=== PATIENT | female | born 2000 | race Caucasian/White ===

== ENCOUNTER 2021-02-03 08:08 | Inpatient (IN) ==
[2021-02-03] MEDS ORDERED: OXYTOCIN 30 UNITS/500 ML BAG IV PRN ×2 (08:50)
[2021-02-03 09:10] LABS: Hematocrit (blood only) 33.7 % (37-47); Hemoglobin 11.1 g/dL (12.0-16.0); Mean Corpuscular Hemoglobin 28.3 pg (25-34); Mean Corpuscular Hgb Conc 32.9 g/dL (32-36); Mean Platelet Volume 10.2 fL (7.4-10.4); Platelet Count 228 K/uL (130-400); RDW Coefficient of Variation 15.7 % (11.5-14.5); RDW Standard Deviation 49.2 fL (36.4-46.3); Red Blood Count 3.92 M/uL (4.2-5.4); White Blood Count 15.67 K/uL (4.8-10.8)
[2021-02-03] MEDS ORDERED: PENICILLIN G POTASSIUM 6 MU in DEXTROSE 5% 250 ML IV ONE (09:15)
[2021-02-03] MEDS: LACTATED RINGER'S 1,000 ML IV PRN ×2 (09:43→17:56)
--- NOTE | 2021-02-03 09:57 | History & Physical Report ---
Date of Service February 03, 2021 Assessment & Plan (1) : Plan: 20 y/o G1 at 41 2/7 wga presenting for late term IOL VSS Fetus cat 1 Labor - s/p busch bulb, will start pit GBS+, pcn started epidural PRN Admission and Anticipated Discharge Date Admission Date: February 03, 2021 History of Present Illness Chief Complaint: Late term IOL Primary Care Provider: NO PCP 20 y/o G1 at 41 2/7 wga w/ ORTEGA 01/25 by LMP 04/20 c/w [address] [place] [address] who presents for late term IOL. +FM; denies ctx, LOF, VB. Busch bulb placed last evening and fell out around 11pm last evening PNI: Asthma GBS+ Unable to view heart on anatomy, echo wnl Past DIET AID Hx: G1 Menarche 11, cycles q28-30d 03/2019 neg cytology Denies hx STIs Allergies Allergy/AdvReac Type Severity Reaction Status Date / Time No Known Allergies Allergy Verified 02/02/21 13:32 Home Medications Medication Instructions Recorded Confirmed Type prenat.vits,mariano,vjk-yafq-mxrak 1 tab PO DAILY 06/25/20 02/03/21 History albuterol sulfate 90 mcg/actuation 1 inh INHALATION QID PRN 02/03/21 02/03/21 History aerosol inhaler (Ventolin HFA) Patient History Medical History Asthma Varicella vaccination Surgical History S/P ankle fusion (~02/10/11) S/P tonsillectomy S/P wisdom tooth extraction Family History Grandfather (Maternal) Diabetes Hypertension Grandmother (Maternal) No problems noted. Grandmother (Paternal) Diabetes Mother Hypertension Asthma Uncle Liver cancer Denies family history of Ovarian cancer Breast cancer Colorectal cancer Social History Smoking Status: Former smoker Cigarettes Per Day: 01/2020; Second Hand Exposure: Yes (S.O. smokes); Do You Dip or Chew Tobacco: No; Hx Alcohol Use: No Hx Substance Use: No Preferred Language: Serbian Communication Ability: Effective Group Rooms Coordinator Required: No marital status: Single marital status details: Fonivia Fletcher (24) [phone] Current Living Situation: Significant Other Current Living Situation Comment: Lives with Henry and daisy current occupational status: unemployed Other Information That Helps Us Care for You: No Feels Safe at Home: Yes Safety Concerns: Feels Safe At This Time Assistive Devices: None Physical Exam Constitutional: WD/WN, vitals as above Respiratory: normal respiratory effort; no respiratory distress and no labored breathing Psychiatric: A+Ox3, euthymic affect Genitourinary: OB Exam Abdomen: + vertex and + estimated weight (8) Manual OB Exam: + cervical dilation 3 cm, + cervical effacement 50% and + station -2 OB Exam Monitor Tracing: + external FHT monitor used, + external uterine monitor used (irreg ctx) and + category I (140/mod/+accel/-decel) Results & Data ([facility]) Vital Signs (Past 12 Hours) Vital Signs Temp Pulse Resp BP 02/03/21 08:44 97.9 F 93 H 20 137/74 02/03/21 08:17 93 H 137/74 Laboratory Results OB Labs: Blood Type O Positive 06/26/20 Antibody Screen NEGATIVE 06/26/20 Hemoglobin 10.7 g/dL (12.0-16.0) L 11/13/20 Hematocrit 32.9 % (37-47) L 11/13/20 Mean Corpuscular Volume 84.2 fL (80-100) 06/26/20 Platelet Count 237 K/uL (130-400) 06/26/20 Rubella IgG Antibody Immune (Immune) 06/26/20 Rapid Plasma Reagin Nonreactive (Nonreactive) 06/26/20 Hepatitis B Surface Antigen Neg (Neg) 06/26/20 HIV (1&2) Ab and P24 Ag, 4th Gener Neg (Neg) 06/26/20 Glucose 1 Hour 50 gm Load 102 mg/dl (70-130) 11/13/20 Maternal Serum Alpha Fetoprotein 48.1 ng/mL 08/21/20 OB Optional Labs: Chlamydia trachomatis RNA NOT DETECTED (NOT DETECTED) 06/26/20 Neisseria gonorrhoeae RNA NOT DETECTED (NOT DETECTED) 06/26/20 Thyroid Stimulating Hormone (TSH) 0.724 uIu/ml (0.300-4.500) 08/21/20 Alpha Fetoprotein Triple Screen SEE NOTE low risk cfdna AFP neg Diagnostic Findings Anterior plac Coding Level of Care Code None Diagnoses Z34.90
--- NOTE | 2021-02-03 13:15 | Labor Progress Brief Note ---
Date of Service February 03, 2021 Subjective Feeling crampy Assessment & Plan (1) : Plan: 20 y/o G1 at 41 2/7 wga presenting for late term IOL VSS Fetus cat 1 Labor - pit at 12, no real change noted. Will plan arom with next check after 2nd dose pcn to see if will help GBS+, pcn started epidural PRN Admission and Anticipated Discharge Date Admission Date: February 03, 2021 Physical Exam Genitourinary: Manual OB Exam: + cervical dilation 3 cm, + cervical effacement 50% and + station -2 OB Exam Monitor Tracing: + external FHT monitor used, + external uterine monitor used (q3-4) and + category I (130/mod/+accel/-decel) Results & Data ([facility]) Vital Signs (Past 12 Hours) Vital Signs Temp Pulse Resp BP 02/03/21 12:52 81 20 131/67 02/03/21 11:52 98.4 F 85 20 127/67 02/03/21 11:32 78 122/71 02/03/21 11:16 86 20 137/85 02/03/21 10:45 88 128/64 02/03/21 08:44 97.9 F 93 H 20 137/74 02/03/21 08:17 93 H 137/74 Coding Level of Care Code None Diagnoses Z34.90
[2021-02-03] MEDS: PENICILLIN G POTASSIUM 3 MU in DEXTROSE 5% 100 ML IV PRN ×3 (14:19→21:44)
[2021-02-03] MEDS ORDERED: fentaNYL citrate 100 MCG/2 ML VIAL ONE (14:46)
[2021-02-03] MEDS ORDERED: SODIUM CHLORIDE 0.9% INJ 10 ML VIAL ONE (14:46)
[2021-02-03] MEDS ORDERED: ePHEDrine sulfate 50 MG/ML AMP ONE (14:46)
[2021-02-03] MEDS ORDERED: BUPIVACAINE 0.25% 30 ML VIAL ONE (14:46)
[2021-02-03] MEDS ORDERED: fentaNYL 2MCG/ML ROPIVACAINE 1.25MG/ML 100 ML BAG EPI ONE (14:47)
--- NOTE | 2021-02-03 15:08 | Anesthesiology Consultation ---
Date of Service February 03, 2021 Assessment & Plan (1) Encounter for pre-operative examination: Chart Review Chart Review: Acceptable Risk for Labor Epidural Consults Requested none ASA ASA2 Proposed Anesthesia Anesthesia Type: Labor Epidural Risk / Benefits Reviewed With: PT / POA / Parent / Guardian, Accepts Plan and Informed Consent Obtained History Height/Weight Height: 5 ft 2 in Weight: 98.792 kg Allergies Allergy/AdvReac Type Severity Reaction Status Date / Time No Known Allergies Allergy Verified 02/02/21 13:32 Medications Home Medications Medication Instructions Recorded Confirmed Last Taken prenat.vits,mariano,bzi-dazt-gjlfv 1 tab PO DAILY 06/25/20 02/03/21 02/02/21 08:00 albuterol sulfate 90 mcg/actuation 1 inh INHALATION QID PRN 02/03/21 02/03/21 Unknown aerosol inhaler (Ventolin HFA) Active Medications Generic Name Dose Route Start Last Admin Trade Name Freq PRN Reason Stop Dose Admin Penicillin G Potassium 3 mu/ 106 mls @ 100 mls/hr 02/03/21 08:50 02/03/21 14:19 Dextrose IV 02/13/21 08:49 100 mls/hr Q4H PRN Administration Give until delivery Oxytocin 30 units in 500 mls @ 14 mls/hr 02/03/21 08:50 02/03/21 13:15 Pitocin IV 02/05/21 08:49 0.84 units/hr .Q24H PRN 14 mls/hr Labor Induction/Augmentation Titration Protocol 0.84 UNITS/HR Lactated Ringer's 1,000 mls @ 125 mls/hr 02/03/21 08:50 02/03/21 14:42 Lr IV 02/05/21 08:49 999 mls/hr .Q8H PRN Infusion L&D Protocol Protocol Past Medical History Medical History Asthma Varicella vaccination Exercise / Class Metabolic Activity II 4-5 Yardwork/Stairs/Walk up hill Past Family History Family History Grandfather (Maternal) Diabetes Hypertension Grandmother (Maternal) No problems noted. Grandmother (Paternal) Diabetes Mother Hypertension Asthma Uncle Liver cancer Denies family history of Ovarian cancer Breast cancer Colorectal cancer Past Surgical History Surgical History S/P ankle fusion (~02/10/11) S/P tonsillectomy S/P wisdom tooth extraction Past Anesthesia History No Hx of Anesthesia Complications and No Family Hx of Anesthesia Complications History of PONV No Hx of PONV and No Hx of Motion Sickness Social History Smoking Status: Former smoker tobacco type: cigarettes Smoking cigarettes per day: 01/2020 Do You Dip or Chew Tobacco: No Hx Alcohol Use: No Hx Substance Use: No substance use type: does not use Physical Exam Vital Signs Last Vital Signs Temp 97.9 F 02/03/21 15:03 Pulse 71 02/03/21 15:03 Resp 20 02/03/21 15:03 BP 118/65 02/03/21 15:03 ENMT Mouth: no dentition abnormality Thyromental Distance: > or= 3.5 Finger Breadths Mallampati Class: II Neck normal visual inspection Respiratory normal respiratory effort Auscultation: lungs clear to auscultation bilaterally Cardiovascular Rate/Rhythm: regular rate and regular rhythm Testing Laboratory Results 02/03/21 09:01
[2021-02-03] MEDS ORDERED: ePHEDrine sulfate 50 MG/ML AMP IV PRN (15:26)
[2021-02-03] MEDS ORDERED: fentaNYL 2MCG/ML ROPIVACAINE 1.25MG/ML 100 ML BAG EPI PRN (15:26)
[2021-02-03] MEDS ORDERED: ONDANSETRON INJ 2 MG/ML 2 ML VIAL IV PRN (15:26)
[2021-02-03] MEDS ORDERED: NALOXONE HCL 0.4 MG/1 ML VIAL/CARP IV PRN (15:26)
[2021-02-03] MEDS ORDERED: diphenhydrAMINE 50 MG/ML VIAL IV PRN (15:26)
[2021-02-03] MEDS ORDERED: NALBUPHINE HCL INJ 10 MG/ML AMP IV PRN (15:26)
[2021-02-03] MEDS ORDERED: NALOXONE HCL 1 MG in SODIUM CHLORIDE 0.9% 1000ML 1,000 ML IV PRN (15:26)
--- NOTE | 2021-02-03 15:55 | Labor Progress Brief Note ---
Date of Service February 03, 2021 Subjective s/p epidural, more comfortable Assessment & Plan (1) : Plan: 20 y/o G1 at 41 2/7 wga presenting for late term IOL VSS Fetus cat 1 Labor - s/p AROM, continue augmentation GBS+, pcn epidural in place Admission and Anticipated Discharge Date Admission Date: February 03, 2021 Physical Exam Genitourinary: Manual OB Exam: + cervical dilation 3 cm, + cervical effacement 50%, + station -1 and + amniotic fluid (AROM clear) OB Exam Monitor Tracing: + external FHT monitor used, + external uterine monitor used (q3-4) and + category I (130/mod/+accel/-decel) Results & Data ([facility]) Vital Signs (Past 12 Hours) Vital Signs Temp Pulse Resp BP Pulse Ox 02/03/21 15:51 79 133/84 02/03/21 15:50 90 99 02/03/21 15:45 81 98 02/03/21 15:40 80 99 02/03/21 15:35 82 131/77 99 02/03/21 15:33 81 18 131/80 91 02/03/21 15:31 80 125/57 L 02/03/21 15:30 89 100 02/03/21 15:29 83 128/66 02/03/21 15:27 77 119/68 02/03/21 15:25 87 126/73 99 02/03/21 15:23 77 129/76 02/03/21 15:21 78 123/76 02/03/21 15:20 83 121/67 100 02/03/21 15:15 81 99 02/03/21 15:10 86 100 02/03/21 15:03 97.9 F 71 20 118/65 02/03/21 13:53 82 122/69 02/03/21 12:52 81 20 131/67 02/03/21 11:52 98.4 F 85 20 127/67 02/03/21 11:32 78 122/71 02/03/21 11:16 86 20 137/85 02/03/21 10:45 88 128/64 02/03/21 08:44 97.9 F 93 H 20 137/74 02/03/21 08:17 93 H 137/74 Coding Level of Care Code None Diagnoses Z34.90
--- NOTE | 2021-02-03 19:22 | Labor Progress Brief Note ---
Date of Service February 03, 2021 Subjective Comfortable w/ epidural Assessment & Plan (1) : Plan: 20 y/o G1 at 41 2/7 wga presenting for late term IOL VSS Fetus cat 1 Labor - continue augmentation GBS+, pcn epidural in place Admission and Anticipated Discharge Date Admission Date: February 03, 2021 Physical Exam Genitourinary: Manual OB Exam: + cervical dilation 4 cm, + cervical effacement 50% and + station -2 OB Exam Monitor Tracing: + external FHT monitor used, + external uterine monitor used (q3-4) and + category I (130/mod/+accel/-decel) Results & Data ([facility]) Vital Signs (Past 12 Hours) Vital Signs Temp Pulse Resp BP Pulse Ox 02/03/21 19:15 79 99 02/03/21 19:10 92 H 99 02/03/21 19:05 99 H 138/84 99 02/03/21 19:00 98.4 F 101 H 18 99 02/03/21 18:55 80 99 02/03/21 18:52 85 133/88 02/03/21 18:50 82 98 02/03/21 18:45 92 H 99 02/03/21 18:40 90 97 02/03/21 18:37 88 147/75 H 02/03/21 18:35 83 100 02/03/21 18:30 91 H 99 02/03/21 18:25 92 H 100 02/03/21 18:21 91 H 131/76 02/03/21 18:20 87 99 02/03/21 18:15 93 H 99 02/03/21 18:10 84 98 02/03/21 18:07 95 H 128/86 02/03/21 18:05 83 98 02/03/21 18:00 97.9 F 89 20 99 02/03/21 17:55 86 98 02/03/21 17:51 83 136/63 02/03/21 17:50 90 99 02/03/21 17:45 104 H 95 02/03/21 17:40 77 99 02/03/21 17:35 74 107/53 L 100 02/03/21 17:33 78 92 02/03/21 17:30 78 98 02/03/21 17:25 81 98 02/03/21 17:21 73 114/55 L 02/03/21 17:20 71 90 08/17/21 17:15 78 98 02/03/21 17:10 80 95 02/03/21 17:07 75 107/55 L 02/03/21 17:05 77 100 02/03/21 17:00 77 98 02/03/21 16:55 75 99 02/03/21 16:52 78 102/53 L 94 02/03/21 16:50 81 98 02/03/21 16:45 75 97 02/03/21 16:40 74 99 02/03/21 16:37 78 117/65 02/03/21 16:35 78 98 02/03/21 16:30 74 99 02/03/21 16:25 80 100 02/03/21 16:20 83 137/83 99 02/03/21 16:15 88 99 02/03/21 16:10 83 99 02/03/21 16:07 82 133/84 02/03/21 16:05 79 99 02/03/21 16:00 81 100 02/03/21 15:55 97.9 F 91 H 20 100 02/03/21 15:51 79 133/84 02/03/21 15:50 90 99 02/03/21 15:45 81 98 02/03/21 15:40 80 99 02/03/21 15:35 82 131/77 99 02/03/21 15:33 81 18 131/80 91 02/03/21 15:31 80 125/57 L 02/03/21 15:30 89 100 02/03/21 15:29 83 128/66 02/03/21 15:27 77 119/68 02/03/21 15:25 87 126/73 99 02/03/21 15:23 77 129/76 02/03/21 15:21 78 123/76 02/03/21 15:20 83 121/67 100 02/03/21 15:15 81 99 02/03/21 15:10 86 100 02/03/21 15:03 97.9 F 71 20 118/65 02/03/21 13:53 82 122/69 02/03/21 12:52 81 20 131/67 02/03/21 11:52 98.4 F 85 20 127/67 02/03/21 11:32 78 122/71 08/17/21 11:16 86 20 137/85 08/17/21 10:45 88 128/64 02/03/21 08:44 97.9 F 93 H 20 137/74 02/03/21 08:17 93 H 137/74 Coding Level of Care Code None Diagnoses Z34.90
--- NOTE | 2021-02-03 22:02 | Labor Progress Brief Note ---
Date of Service February 03, 2021 Assessment & Plan (1) : Plan: 20 y/o G1 at 41 2/7 wga presenting for late term IOL VSS Fetus cat 1 Labor - pit just turned up to 24, IUPC placed. Cervix has thinned out quite a bit. Will see if ctx are adequate, can go up on pit if not adequate. If adequate, can consider pit break if no change with next check GBS+, pcn epidural in place Admission and Anticipated Discharge Date Admission Date: February 03, 2021 Physical Exam Genitourinary: Manual OB Exam: + cervical dilation 4 cm, + cervical effacement 70% and + station -2 OB Exam Monitor Tracing: + external FHT monitor used, + intra-uterine pressure catheter used (placed, q2min) and + category I (140/mod/+accel/-decel) Results & Data ([facility]) Vital Signs (Past 12 Hours) Vital Signs Temp Pulse Resp BP Pulse Ox 02/03/21 21:50 103 H 97 02/03/21 21:45 84 100 02/03/21 21:41 101 H 92 02/03/21 21:40 103 H 98 02/03/21 21:36 103 H 135/83 02/03/21 21:35 104 H 98 02/03/21 21:30 99 H 20 99 02/03/21 21:26 99 H 92 02/03/21 21:25 84 100 02/03/21 21:21 86 133/66 02/03/21 21:20 84 97 02/03/21 21:15 81 99 02/03/21 21:10 91 H 97 02/03/21 21:06 83 114/58 L 02/03/21 21:05 81 98 02/03/21 21:00 98.1 F 94 H 18 93 02/03/21 20:58 84 92 02/03/21 20:55 80 100 02/03/21 20:51 80 118/56 L 02/03/21 20:50 85 100 02/03/21 20:46 84 94 02/03/21 20:45 79 99 02/03/21 20:40 75 98 02/03/21 20:36 74 105/53 L 02/03/21 20:35 76 99 02/03/21 20:30 76 18 100 02/03/21 20:25 80 98 02/03/21 20:20 92 H 126/59 L 97 02/03/21 20:15 95 H 99 02/03/21 20:10 88 97 02/03/21 20:05 88 138/71 99 02/03/21 20:00 86 18 99 02/03/21 19:55 81 99 02/03/21 19:52 89 149/61 H 02/03/21 19:50 98 H 98 02/03/21 19:45 93 H 99 02/03/21 19:40 84 98 02/03/21 19:36 95 H 142/77 H 89 L 02/03/21 19:35 85 98 02/03/21 19:30 88 18 97 02/03/21 19:25 88 97 02/03/21 19:21 77 136/77 02/03/21 19:20 82 98 02/03/21 19:15 79 99 02/03/21 19:10 92 H 99 02/03/21 19:05 99 H 138/84 99 02/03/21 19:00 98.4 F 101 H 18 99 02/03/21 18:55 80 99 02/03/21 18:52 85 133/88 02/03/21 18:50 82 98 02/03/21 18:45 92 H 99 02/03/21 18:40 90 97 02/03/21 18:37 88 147/75 H 02/03/21 18:35 83 100 02/03/21 18:30 91 H 99 02/03/21 18:25 92 H 100 02/03/21 18:21 91 H 131/76 02/03/21 18:20 87 99 02/03/21 18:15 93 H 99 02/03/21 18:10 84 98 02/03/21 18:07 95 H 128/86 02/03/21 18:05 83 98 02/03/21 18:00 97.9 F 89 20 99 02/03/21 17:55 86 98 02/03/21 17:51 83 136/63 02/03/21 17:50 90 99 02/03/21 17:45 104 H 95 02/03/21 17:40 77 99 02/03/21 17:35 74 107/53 L 100 02/03/21 17:33 78 92 02/03/21 17:30 78 98 02/03/21 17:25 81 98 02/03/21 17:21 73 114/55 L 02/03/21 17:20 71 90 02/03/21 17:15 78 98 02/03/21 17:10 80 95 02/03/21 17:07 75 107/55 L 02/03/21 17:05 77 100 02/03/21 17:00 77 98 02/03/21 16:55 75 99 02/03/21 16:52 78 102/53 L 94 02/03/21 16:50 81 98 02/03/21 16:45 75 97 02/03/21 16:40 74 99 02/03/21 16:37 78 117/65 02/03/21 16:35 78 98 02/03/21 16:30 74 99 02/03/21 16:25 80 100 02/03/21 16:20 83 137/83 99 02/03/21 16:15 88 99 02/03/21 16:10 83 99 02/03/21 16:07 82 133/84 02/03/21 16:05 79 99 02/03/21 16:00 81 100 02/03/21 15:55 97.9 F 91 H 20 100 02/03/21 15:51 79 133/84 02/03/21 15:50 90 99 02/03/21 15:45 81 98 02/03/21 15:40 80 99 02/03/21 15:35 82 131/77 99 02/03/21 15:33 81 18 131/80 91 02/03/21 15:31 80 125/57 L 02/03/21 15:30 89 100 02/03/21 15:29 83 128/66 02/03/21 15:27 77 119/68 02/03/21 15:25 87 126/73 99 02/03/21 15:23 77 129/76 02/03/21 15:21 78 123/76 02/03/21 15:20 83 121/67 100 02/03/21 15:15 81 99 02/03/21 15:10 86 100 02/03/21 15:03 97.9 F 71 20 118/65 02/03/21 13:53 82 122/69 02/03/21 12:52 81 20 131/67 02/03/21 11:52 98.4 F 85 20 127/67 02/03/21 11:32 78 122/71 02/03/21 11:16 86 20 137/85 02/03/21 10:45 88 128/64 Coding Level of Care Code None Diagnoses Z34.90
--- NOTE | 2021-02-04 00:05 | Labor Progress Brief Note ---
Date of Service February 04, 2021 Subjective Some discomfort w/ ctx Assessment & Plan (1) : Plan: 20 y/o G1 at 41 3/7 wga presenting for late term IOL VSS Fetus cat 1 Labor - pit at 24 w/ adequate ctx now, has made some change since last check so will continue GBS+, pcn epidural in place Admission and Anticipated Discharge Date Admission Date: February 03, 2021 Physical Exam Genitourinary: Manual OB Exam: + cervical dilation (4+), + cervical effacement 80% and + station -1 OB Exam Monitor Tracing: + external FHT monitor used, + intra-uterine pressure catheter used (q3-4min, adequate) and + category I (140/mod/+accel/-decel) Results & Data ([facility]) Vital Signs (Past 12 Hours) Vital Signs Temp Pulse Resp BP Pulse Ox 02/04/21 00:00 85 18 99 02/03/21 23:55 84 99 02/03/21 23:52 91 H 119/68 02/03/21 23:50 85 99 02/03/21 23:45 87 100 02/03/21 23:40 92 H 99 02/03/21 23:37 83 139/65 02/03/21 23:35 86 98 02/03/21 23:30 85 18 98 02/03/21 23:25 109 H 99 02/03/21 23:21 81 119/58 L 02/03/21 23:20 85 98 02/03/21 23:15 85 99 02/03/21 23:10 82 98 02/03/21 23:07 81 111/53 L 02/03/21 23:05 84 98 02/03/21 23:00 98.4 F 87 18 98 02/03/21 22:58 99 H 93 02/03/21 22:55 83 99 02/03/21 22:51 81 111/63 02/03/21 22:50 81 99 02/03/21 22:45 81 98 02/03/21 22:40 83 99 02/03/21 22:36 80 115/62 02/03/21 22:35 82 100 02/03/21 22:30 81 18 99 02/03/21 22:25 84 100 02/03/21 22:24 86 91 02/03/21 22:21 89 103/57 L 02/03/21 22:20 86 99 02/03/21 22:15 85 93 02/03/21 22:12 96 H 91 02/03/21 22:10 90 100 02/03/21 22:07 85 90 02/03/21 22:06 86 115/75 02/03/21 22:05 90 98 02/03/21 22:00 82 20 100 02/03/21 21:57 97 H 93 02/03/21 21:55 90 99 02/03/21 21:50 103 H 97 02/03/21 21:45 84 100 02/03/21 21:41 101 H 92 02/03/21 21:40 103 H 98 02/03/21 21:36 103 H 135/83 02/03/21 21:35 104 H 98 02/03/21 21:30 99 H 20 99 02/03/21 21:26 99 H 92 02/03/21 21:25 84 100 02/03/21 21:21 86 133/66 02/03/21 21:20 84 97 02/03/21 21:15 81 99 02/03/21 21:10 91 H 97 02/03/21 21:06 83 114/58 L 02/03/21 21:05 81 98 02/03/21 21:00 98.1 F 94 H 18 93 02/03/21 20:58 84 92 02/03/21 20:55 80 100 02/03/21 20:51 80 118/56 L 02/03/21 20:50 85 100 02/03/21 20:46 84 94 02/03/21 20:45 79 99 02/03/21 20:40 75 98 02/03/21 20:36 74 105/53 L 02/03/21 20:35 76 99 02/03/21 20:30 76 18 100 02/03/21 20:25 80 98 02/03/21 20:20 92 H 126/59 L 97 02/03/21 20:15 95 H 99 02/03/21 20:10 88 97 02/03/21 20:05 88 138/71 99 02/03/21 20:00 86 18 99 02/03/21 19:55 81 99 02/03/21 19:52 89 149/61 H 02/03/21 19:50 98 H 98 02/03/21 19:45 93 H 99 02/03/21 19:40 84 98 02/03/21 19:36 95 H 142/77 H 89 L 02/03/21 19:35 85 98 02/03/21 19:30 88 18 97 02/03/21 19:25 88 97 02/03/21 19:21 77 136/77 02/03/21 19:20 82 98 02/03/21 19:15 79 99 02/03/21 19:10 92 H 99 02/03/21 19:05 99 H 138/84 99 02/03/21 19:00 98.4 F 101 H 18 99 02/03/21 18:55 80 99 02/03/21 18:52 85 133/88 02/03/21 18:50 82 98 02/03/21 18:45 92 H 99 02/03/21 18:40 90 97 02/03/21 18:37 88 147/75 H 02/03/21 18:35 83 100 02/03/21 18:30 91 H 99 02/03/21 18:25 92 H 100 02/03/21 18:21 91 H 131/76 02/03/21 18:20 87 99 02/03/21 18:15 93 H 99 02/03/21 18:10 84 98 02/03/21 18:07 95 H 128/86 02/03/21 18:05 83 98 02/03/21 18:00 97.9 F 89 20 99 02/03/21 17:55 86 98 02/03/21 17:51 83 136/63 02/03/21 17:50 90 99 02/03/21 17:45 104 H 95 02/03/21 17:40 77 99 02/03/21 17:35 74 107/53 L 100 02/03/21 17:33 78 92 02/03/21 17:30 78 98 02/03/21 17:25 81 98 02/03/21 17:21 73 114/55 L 02/03/21 17:20 71 90 02/03/21 17:15 78 98 02/03/21 17:10 80 95 02/03/21 17:07 75 107/55 L 02/03/21 17:05 77 100 02/03/21 17:00 77 98 02/03/21 16:55 75 99 02/03/21 16:52 78 102/53 L 94 02/03/21 16:50 81 98 02/03/21 16:45 75 97 02/03/21 16:40 74 99 02/03/21 16:37 78 117/65 02/03/21 16:35 78 98 02/03/21 16:30 74 99 02/03/21 16:25 80 100 02/03/21 16:20 83 137/83 99 02/03/21 16:15 88 99 02/03/21 16:10 83 99 02/03/21 16:07 82 133/84 02/03/21 16:05 79 99 02/03/21 16:00 81 100 02/03/21 15:55 97.9 F 91 H 20 100 02/03/21 15:51 79 133/84 02/03/21 15:50 90 99 02/03/21 15:45 81 98 02/03/21 15:40 80 99 02/03/21 15:35 82 131/77 99 02/03/21 15:33 81 18 131/80 91 02/03/21 15:31 80 125/57 L 02/03/21 15:30 89 100 02/03/21 15:29 83 128/66 02/03/21 15:27 77 119/68 02/03/21 15:25 87 126/73 99 02/03/21 15:23 77 129/76 02/03/21 15:21 78 123/76 02/03/21 15:20 83 121/67 100 02/03/21 15:15 81 99 02/03/21 15:10 86 100 02/03/21 15:03 97.9 F 71 20 118/65 02/03/21 13:53 82 122/69 02/03/21 12:52 81 20 131/67 Coding Level of Care Code None Diagnoses Z34.90
[2021-02-04] MEDS: PENICILLIN G POTASSIUM 3 MU in DEXTROSE 5% 100 ML IV PRN (01:56)
--- NOTE | 2021-02-04 03:12 | Delivery Summary ---
Vaginal Delivery Summary Date of Service February 04, 2021 Vaginal Delivery Summary [facility] PREOPERATIVE DIAGNOSIS: 1. Single intrauterine at 41 3/7 2. Late term induction of labor 3. GBS+ POSTOPERATIVE DIAGNOSIS: 1. Single intrauterine at 41 3/7 2. Late term induction of labor 3. GBS+ 4. Delivered PROCEDURE: 1. Normal spontaneous vaginal delivery. SURGEON: Gale Cummins MD ANESTHESIA: Epidural. ESTIMATED BLOOD LOSS: 300 mL FLUIDS: Continuous LR. URINE OUTPUT: None. COMPLICATIONS: None. CONDITION: Stable. INDICATIONS: 20 y/o G1 at 41 3/7 wga presented 1 day ago for planned late term induction of labor. She had a busch bulb placed the evening prior which fell out prior to arrival to hospital. She was started on penicillin for GBS+ status. She was started on pitocin and received an epidural for pain control. She underwent artificial rupture of membranes and continued to progress slowly until about 4cm and pit was at 24. IUPC was placed for more adequate monitoring at that point. She continued to progress until she became complete and strongly desired to push. FINDINGS: A viable female with Apgars of 8 and 8 at 1 and 5 minutes respectively. SPECIMEN: Cord blood OPERATIVE REPORT: The patient progressed to 10 cm, 100% effaced and +2 station, pushed over intact perineum with anesthesia to deliver a viable female , Apgars as above. Head of delivered in MALU position. No nuchal cord was present. Body and shoulders were delivered without difficulty. was delivered to maternal abdomen and nursing staff. Delayed cord clamping was performed for 60 seconds. Cord was clamped and cut. Cord blood was obtained. Placenta delivered spontaneously intact with 3-vessel cord. IV oxytocin and fundal massage were given for excellent hemostasis. Vagina, cervix, perineum, and placenta were inspected. A right periurethral laceration was noted and repaired using 4-0 Vicryl. Sponge and needle counts correct x2. No sponges were left behind. Mother and stable in immediate period. [facility] Vaginal Delivery Charge Vaginal Delivery Codes: 11711 global code for the antepartum, delivery, and post- Delivery Type Details: [facility]
[2021-02-04] MEDS ORDERED: DIPHTHERIA/TETANUS/PERTUSSIS 0.5 ML SYR/VIAL IM ONE (03:16)
[2021-02-04] MEDS ORDERED: SUPERCREAM 0.870% 15 GM JAR EXT PRN (03:16)
[2021-02-04] MEDS ORDERED: ACETAMINOPHEN 325 MG TAB PO PRN (03:16)
[2021-02-04] MEDS ORDERED: ALBUTEROL HFA 8 GM INHALER INH PRN (03:16)
[2021-02-04] MEDS ORDERED: HYDROCORTISONE ACETATE 25 MG SUPP PR PRN (03:16)
[2021-02-04] MEDS ORDERED: OXYTOCIN 30 UNITS/500 ML BAG IV PRN (03:16)
[2021-02-04] MEDS ORDERED: BENZOCAINE 20% AER SPR 82.5 GM CAN EXT PRN (03:16)
[2021-02-04] MEDS: IBUPROFEN 600 MG TAB PO PRN ×3 (04:40→16:10)
--- NOTE | 2021-02-04 07:04 | Anesthesia Procedure Note ---
Date of Service February 04, 2021 Anesthesia Post Epidural Note Vital Signs Vital Signs: Temp Pulse Resp BP Pulse Ox 98.1 F 100 H 20 134/74 90 02/04/21 05:40 02/04/21 05:40 02/04/21 05:40 02/04/21 05:40 02/04/21 03:11 Pain Intensity Abdomen: Pain Intensity: 0 Notes Mental Status: alert / awake / arousable and participated in evaluation Nausea / Vomiting: adequately controlled Pain: adequately controlled Airway Patency, RR, SpO2: stable & adequate BP & HR: stable & adequate Hydration State: stable & adequate Neuraxial Anesthesia: was administered and sensory block is resolving Anesthetic Complications: no major complications apparent and Pt Satisfied with anesthetic care Epidural: Removed without complications and With tip intact
[2021-02-04] MEDS: FERROUS SULFATE 325 MG TAB PO SCH (09:05)
[2021-02-04] MEDS: DOCUSATE SODIUM 100 MG CAP PO SCH ×2 (09:05→20:20)
[2021-02-04] MEDS: PRENATAL VITAMIN 1 TAB PO SCH (09:05)
--- NOTE | 2021-02-05 05:20 | Obstetrical Progress Note ---
Date of Service <Genaro Benton - Last Filed: 02/05/21 07:00> February 05, 2021 Assessment & Plan <Genaro Benton - Last Filed: 02/05/21 07:00> (1) Encounter for care and examination after delivery: PPD1 - O+, GBS+, RI. - Vitals WNL. - Encourage . - Discussed discharge with patient. Patient wanting to go home today. <Mariaelena Pickard MD - Last Filed: 02/05/21 07:21> (1) Encounter for care and examination after delivery: Subjective <Genaro [place] - Last Filed: 02/05/21 07:00> Ambulation: ambulating normally Voiding: no voiding problems Passing Gas:: Yes Diet Tolerance:: regular diet Lochia:: Small Feeding Type:: breast feeding Current Pain Level(1-10): 0 Review of Systems Slight cramping in abdomen. Denies fever, chills, sweats Denies shortness of breath, difficulty breathing, chest pain, palpitations, chest pressure. Denies breast pain. Denies dysuria. Denies headache or changes in vision Physical Exam <Genaro Benton - Last Filed: 02/05/21 07:00> General: Alert, oriented. No acute distress. Cardiac: Regular rate and rhythm, no murmurs/rubs/gallops. Respiratory: Clear to auscultation bilaterally a/p, no wheezes/rales/rhonchi. No increased work of breathing. Symmetrical chest rise. No respiratory distress. Abdomen: Soft, nontender, nondistended. Bowel sounds present. Uterus: Uterine fundus firm, palpable 1 cm below umbilicus. Lower Extremities: No lower extremity edema or swelling. No deep calf pain. Aneesh's negative bilaterally Results & Data ([facility]) <Genaro Sainzacwinnie - Last Filed: 02/05/21 07:00> Vital Signs (Past 12 Hours) Vital Signs Temp Pulse Resp BP Pulse Ox 02/05/21 00:00 36.8 C 92 H 18 110/69 02/04/21 19:05 36.9 C 89 18 111/69 98 <Mariaelena Pickard MD - Last Filed: 02/05/21 07:21> Co-Signing Physician Notes Resident Physician Supervision Note: I interviewed and examined the patient. Discussed with Dr. Benton and agree with findings and plan as documented in the note. Any exceptions or clarifications are listed here: [ ] Documented By: Mariaelena Pickard MD, FACOG Resident Activity Tracking <Genaro Benton DO - Last Filed: 02/05/21 07:00> Resident Involvement: Resident Care Provided Care Provided: OB Delivery
[2021-02-05] MEDS: PRENATAL VITAMIN 1 TAB PO SCH (08:09)
[2021-02-05] MEDS: FERROUS SULFATE 325 MG TAB PO SCH (08:09)
[2021-02-05] MEDS: DOCUSATE SODIUM 100 MG CAP PO SCH (08:09)
[2021-02-05] MEDS ORDERED: bisacodyL 5 MG TABEC PO SCH (20:00)
[2021-02-06] MEDS ORDERED: bisacodyL 10 MG SUPP PR PRN (03:16)
== END 2021-02-05 12:15 | disposition home or self-care (01) | DRG 807 ==
LOC: 4S1 08:08 → 4S2 02-04 05:57
DX: Z37.0 Single live birth; O48.0 Post-term pregnancy; O99.824 Streptococcus B carrier state complicating childbirth; Z3A.41 41 weeks gestation of pregnancy; O71.82 Other specified trauma to perineum and vulva

== ENCOUNTER 2023-05-24 06:33 | Inpatient (IN) ==
[2023-05-24] MEDS: LACTATED RINGER'S 1,000 ML IV PRN ×2 (07:00→08:11)
[2023-05-24] MEDS ORDERED: OXYTOCIN 30 UNITS/NSS 30 UNITS/500 ML BAG IV PRN ×3 (07:02→14:21)
[2023-05-24] MEDS ORDERED: LIDOCAINE 1% LOCAL 20 ML VIAL INFIL PRN (07:02)
--- NOTE | 2023-05-24 07:11 | History & Physical Report ---
Date of Service May 24, 2023 Assessment & Plan (1) Obesity affecting : (2) Encounter for supervision of normal in multigravida, antepartum: (3) Normal labor: Plan Patient is a 23-year-old currently at 41 weeks 1 day gestational age presents in early labor. 1. Fetus: Category 1 tracing 2. Labor: Early labor. Will augment as needed. 3. GBS negative 4. Vitals: Within normal limits. Admission and Anticipated Discharge Date Admission Date: May 24, 2023 History of Present Illness Primary Care Provider: NO PCP Gricel is a 23-year-old -0-0-1 currently at 41 weeks 1 day gestational age presents in early labor. Denies leakage of fluid or vaginal bleeding. Reportin g good movement. Obesity (BMI between 35-39 @ beginning of ) *Growth US @ 32 wks *Weekly NSTs @ 36wks Velamentous Cord Insertion (NORMAL as described at 28w, can d/c this protocol) Family History of CHD *needs to schedule echo. *pt cancelled echo d/t transportation *Dr. Monroy recommends post Echo d/t cancellation OB Labs: Blood Type O Positive 11/12/22 Antibody Screen NEGATIVE 11/12/22 Hemoglobin 9.8 g/dl (12.0-16.0) L 02/22/23 Hematocrit 30.7 % (37.0-47.0) L 02/22/23 Mean Corpuscular Volume 82.3 fL (80.0-100.0) 11/12/22 Platelet Count 244 K/uL (130-400) 11/12/22 Rubella IgG Antibody Immune (Immune) 11/12/22 Rapid Plasma Reagin Nonreactive (Nonreactive) 11/12/22 Hepatitis B Surface Antigen Neg (Neg) 06/26/20 Hepatitis B Surface Antigen. NON-REACTIVE (NON-REACTIVE) 11/12/22 Hepatitis C Antibody (EIA) NON-REACTIVE (NON-REACTIVE) 11/12/22 HIV (1&2) Ab and P24 Ag, 4th Gener Neg (Neg) 06/26/20 HIV (1&2) Ag and Ab Confirmation NON-REACTIVE (NON-REACTIVE) 11/12/22 Glucose 1 Hour 50 gm Load 135 mg/dl (70-130) H 02/22/23 Maternal Serum Alpha Fetoprotein 48.1 ng/mL 08/21/20 OB Optional Labs: Chlamydia trachomatis RNA Not Detected (NotDetected) 10/19/22 Neisseria gonorrhoeae RNA Not Detected (NotDetected) 10/19/22 Thyroid Stimulating Hormone (TSH) 0.724 uIu/ml (0.300-4.500) 08/21/20 Alpha Fetoprotein Triple Screen SEE NOTE 08/21/20 Labs Reviewed: low risk cfdna- sln decliens afp - sln afp neg--akh gbs neg--akh Allergies Allergy/AdvReac Type Severity Reaction Status Date / Time No Known Allergies Allergy Verified 05/23/23 11:14 Patient History Medical History (Updated 05/24/23 @ 07:11 by Mario Gil MD) Velamentous insertion of umbilical cord Encounter for care and examination after delivery Encounter for pre-operative examination Asthma Group B streptococcal carriage complicating Varicella vaccination Surgical History S/P ankle fusion (~02/10/11) S/P tonsillectomy S/P wisdom tooth extraction Family History (Updated 10/06/22 @ 14:15 by Yany Ruvalcaba) Grandfather (Maternal) Diabetes Hypertension Grandmother (Maternal) No problems noted. Grandmother (Paternal) Diabetes Mother Hypertension Asthma Uncle Liver cancer Colorectal cancer Aunt Breast cancer Denies family history of Ovarian cancer Social History (Updated 10/06/22 @ 14:16 by Yany Ruvalcaba) Smoking Status: Former smoker Cigarettes Per Day: 01/2020; Second Hand Exposure: Yes (S.O. smokes); Do You Dip or Chew Tobacco: No; Hx Alcohol Use: No Hx Substance Use: No Preferred Language: Georgian Communication Ability: Effective [employer] Hel[employer] Required: No marital status: Single marital status details: Catia Fletcher (26) [phone] Current Living Situation: Significant Other Current Living Situation Comment: Lives with fob, daughter, fob's 2 sons, 1 dog, 1 cat, fob to change litter current occupational status: unemployed Feels Safe at Home: Yes Assistive Devices: None Physical Exam Genitourinary: Manual OB Exam: + cervical dilation 4 cm, + cervical effacement 70% and + station -2 OB Exam Monitor Tracing: + external FHT monitor used, + external uterine monitor used, + category I and + normal FHT variability; no early decelerations present, no late decelerations present and no variable decelerations Results & Data Vital Signs (Past 12 Hours) Vital Signs Temp Pulse Resp BP 05/24/23 06:50 18 05/24/23 06:50 36.6 C 84 18 126/63 Coding Level of Care Code None Diagnoses Obesity affecting in third trimester, unspecified obesity type O99.213 Trimester: third trimester Obesity type affecting : unspecified obesity Encounter for supervision of normal in multigravida, antepartum Z34.80 Normal labor O80; Z37.9 (1) Obesity affecting Trimester: third trimester Obesity type affecting : unspecified obesity Qualified Code(s): O99.213 - Obesity complicating , third trimester
[2023-05-24] MEDS ORDERED: ePHEDrine sulfate 50 MG/ML AMP ONE (07:13)
[2023-05-24] MEDS ORDERED: BUPIVACAINE 0.25% PF 30 ML VIAL ONE (07:13)
[2023-05-24] MEDS ORDERED: LIDOCAINE 2%/EPINEPHRINE 1:200,000 20 ML PF ONE (07:13)
[2023-05-24] MEDS ORDERED: SODIUM CHLORIDE 0.9% PF INJ 10 ML VIAL ONE (07:13)
[2023-05-24] MEDS ORDERED: fentaNYL citrate PF 100 MCG/2 ML VIAL ONE (07:13)
[2023-05-24] MEDS ORDERED: fentANYL 2 MCG/ML BUPIVacaine 0.125%-NSS 100ML BAG ONE (07:13)
[2023-05-24 07:32] LABS: Hematocrit (blood only) 29.6 % (37.0-47.0); Hemoglobin 9.6 g/dl (12.0-16.0); Mean Corpuscular Hemoglobin 25.5 pg (25.0-34.0); Mean Corpuscular Hgb Conc 32.4 g/dL (32.0-36.0); Mean Corpuscular Volume 78.7 fL (80.0-100.0); Mean Platelet Volume 10.4 fL (9.4-12.4); Platelet Count 189 K/uL (130-400); RDW Coefficient of Variation 15.9 % (11.5-14.5); RDW Standard Deviation 44.9 fL (36.4-46.3); Red Blood Count 3.76 M/uL (4.20-5.40)
[2023-05-24] MEDS ORDERED: fentaNYL citrate PF 100 MCG/2 ML VIAL EPI STA (07:47)
[2023-05-24] MEDS ORDERED: ONDANSETRON INJ 2 MG/ML 2 ML VIAL IV PRN (07:47)
[2023-05-24] MEDS ORDERED: NALOXONE HCL 0.4 MG/1 ML VIAL/CARP IV PRN (07:47)
[2023-05-24] MEDS ORDERED: diphenhydrAMINE 50 MG/ML VIAL IV PRN (07:47)
[2023-05-24] MEDS ORDERED: SODIUM CHLORIDE 0.9% PF INJ 10 ML VIAL EPI PRN (07:47)
[2023-05-24] MEDS ORDERED: LIDOCAINE 2%/EPINEPHRINE 1:200,000 20 ML PF EPI STA (07:47)
[2023-05-24] MEDS ORDERED: ROPIVACAINE 0.5% PF 5 MG/ML 20 ML VIAL EPI PRN (07:47)
[2023-05-24] MEDS ORDERED: LIDOCAINE 2% MPF LOCAL 5 ML VIAL EPI PRN (07:47)
[2023-05-24] MEDS ORDERED: ePHEDrine sulfate 50 MG/ML AMP IV PRN (07:47)
[2023-05-24] MEDS ORDERED: NALOXONE HCL 1 MG in SODIUM CHLORIDE 0.9% 1,000 ML IV PRN (07:47)
[2023-05-24] MEDS ORDERED: NALBUPHINE HCL 5 MG in SYRINGE 0 ML IV PRN (07:47)
[2023-05-24] MEDS ORDERED: BUPIVACAINE 0.25% PF 30 ML VIAL EPI STA (07:47)
[2023-05-24] MEDS ORDERED: fentANYL 2 MCG/ML BUPIVacaine 0.125%-NSS 100ML BAG EPI PRN (07:47)
[2023-05-24] MEDS ORDERED: fentaNYL citrate PF 100 MCG/2 ML VIAL EPI PRN (07:47)
[2023-05-24] MEDS ORDERED: BUPIVACAINE 0.25% PF 30 ML VIAL EPI PRN (07:47)
[2023-05-24] MEDS ORDERED: SODIUM CHLORIDE 0.9% PF INJ 10 ML VIAL EPI STA (07:47)
--- NOTE | 2023-05-24 08:13 | Anesthesiology Consultation ---
Date of Service May 24, 2023 Assessment & Plan Chart Review Chart Review: Acceptable Risk for Labor Epidural Consults Requested none History Height/Weight Height: 5 ft 2 in Weight: 94.801 kg Allergies Allergy/AdvReac Type Severity Reaction Status Date / Time No Known Allergies Allergy Verified 05/23/23 11:14 Medications Active Medications Generic Name Dose Route Start Last Admin Trade Name Freq PRN Reason Stop Dose Admin Lactated Ringer's 1,000 mls @ 125 mls/hr 05/24/23 07:02 05/24/23 08:11 Lr IV 05/26/23 07:01 125 mls/hr .Q8H PRN Administration L&D Protocol Protocol Past Medical History Medical History (Updated 05/24/23 @ 07:11 by Mario Gil MD) Velamentous insertion of umbilical cord Encounter for care and examination after delivery Encounter for pre-operative examination Asthma Group B streptococcal carriage complicating Varicella vaccination Past Family History Family History (Updated 10/06/22 @ 14:15 by Yany Ruvalcaba) Grandfather (Maternal) Diabetes Hypertension Grandmother (Maternal) No problems noted. Grandmother (Paternal) Diabetes Mother Hypertension Asthma Uncle Liver cancer Colorectal cancer Aunt Breast cancer Denies family history of Ovarian cancer Past Surgical History Surgical History S/P ankle fusion (~02/10/11) S/P tonsillectomy S/P wisdom tooth extraction Social History Smoking Status: Current every day smoker tobacco type: cigarettes Smoking cigarettes per day: 01/2020 Do You Dip or Chew Tobacco: No Hx Alcohol Use: No Hx Substance Use: No substance use type: does not use Physical Exam Vital Signs Last Vital Signs Temp 36.6 C 05/24/23 06:57 Pulse 82 05/24/23 08:10 Resp 20 05/24/23 06:57 BP 111/55 L 05/24/23 08:10 Pulse Ox 100 05/24/23 08:09 Testing Laboratory Results 05/24/23 07:15
--- NOTE | 2023-05-24 13:35 | Labor Progress Brief Note ---
Date of Service May 24, 2023 Subjective comfortable Assessment & Plan (1) Normal labor: Plan start second stage. Admission and Anticipated Discharge Date Admission Date: May 24, 2023 Physical Exam Physical Exam: cx--c/c/+3 toco--q2-3 efm--120 wtih mod variabiity, small accels, no decels Results & Data Vital Signs (Past 12 Hours) Vital Signs Temp Pulse Resp BP Pulse Ox 05/24/23 13:31 100 05/24/23 13:31 103 H 05/24/23 13:26 100 05/24/23 13:26 96 H 05/24/23 13:21 100 05/24/23 13:21 99 H 05/24/23 13:19 85 05/24/23 13:19 96/52 L 05/24/23 13:16 100 05/24/23 13:16 82 05/24/23 13:11 100 05/24/23 13:11 82 05/24/23 13:06 100 05/24/23 13:06 83 05/24/23 13:05 81 05/24/23 13:05 106/59 L 05/24/23 13:01 100 05/24/23 13:01 94 H 05/24/23 13:00 18 05/24/23 13:00 18 05/24/23 12:56 100 05/24/23 12:56 90 05/24/23 12:51 98 05/24/23 12:51 91 H 05/24/23 12:49 102 H 05/24/23 12:49 107/58 L 05/24/23 12:46 100 05/24/23 12:46 80 05/24/23 12:42 83 L 05/24/23 12:42 96 H 05/24/23 12:41 100 05/24/23 12:41 93 H 05/24/23 12:36 100 05/24/23 12:36 84 05/24/23 12:35 77 05/24/23 12:35 105/56 L 05/24/23 12:31 100 05/24/23 12:31 93 H 05/24/23 12:30 20 05/24/23 12:30 20 05/24/23 12:28 86 L 05/24/23 12:28 88 05/24/23 12:26 100 05/24/23 12:26 90 05/24/23 12:21 100 05/24/23 12:21 98 H 05/24/23 12:20 85 05/24/23 12:20 96/52 L 05/24/23 12:16 100 05/24/23 12:16 99 H 05/24/23 12:14 85 L 05/24/23 12:14 92 H 05/24/23 12:13 88 05/24/23 12:13 126/73 05/24/23 12:11 100 05/24/23 12:11 81 05/24/23 12:06 100 05/24/23 12:06 89 05/24/23 12:04 82 05/24/23 12:04 119/69 05/24/23 12:01 100 05/24/23 12:01 86 05/24/23 12:00 18 05/24/23 12:00 18 05/24/23 11:56 100 05/24/23 11:56 81 05/24/23 11:51 100 05/24/23 11:51 78 05/24/23 11:49 81 05/24/23 11:49 121/71 05/24/23 11:46 100 05/24/23 11:46 77 05/24/23 11:41 100 05/24/23 11:41 84 05/24/23 11:36 100 05/24/23 11:36 88 05/24/23 11:34 95 H 05/24/23 11:34 121/68 05/24/23 11:31 85 L 05/24/23 11:31 101 H 05/24/23 11:30 18 05/24/23 11:30 18 05/24/23 11:26 100 05/24/23 11:26 80 05/24/23 11:21 100 05/24/23 11:21 85 05/24/23 11:20 87 L 05/24/23 11:20 84 05/24/23 11:19 82 05/24/23 11:19 113/63 05/24/23 11:16 100 05/24/23 11:16 79 05/24/23 11:11 98 05/24/23 11:11 95 H 05/24/23 11:09 83 L 05/24/23 11:09 85 05/24/23 11:06 97 05/24/23 11:06 84 05/24/23 11:04 89 05/24/23 11:04 121/68 05/24/23 11:01 98 05/24/23 11:01 84 05/24/23 11:00 18 05/24/23 11:00 18 05/24/23 11:00 80 L 05/24/23 11:00 85 05/24/23 10:56 100 05/24/23 10:56 88 05/24/23 10:50 87 05/24/23 10:50 122/74 05/24/23 10:49 100 05/24/23 10:49 86 05/24/23 10:44 100 05/24/23 10:44 77 05/24/23 10:40 80 L 05/24/23 10:40 82 05/24/23 10:39 20 05/24/23 10:39 36.6 C 20 05/24/23 10:39 90 05/24/23 10:39 81 05/24/23 10:38 87 05/24/23 10:38 118/58 L 05/24/23 10:36 108 H 05/24/23 10:36 144/54 H 05/24/23 10:34 96 05/24/23 10:34 119 H 05/24/23 10:32 88 L 05/24/23 10:32 96 H 05/24/23 10:30 20 05/24/23 10:30 20 05/24/23 10:29 100 05/24/23 10:29 90 05/24/23 10:24 100 05/24/23 10:24 88 05/24/23 10:21 83 05/24/23 10:21 130/77 05/24/23 10:19 99 05/24/23 10:19 83 05/24/23 10:14 100 05/24/23 10:14 79 05/24/23 10:09 100 05/24/23 10:09 80 05/24/23 10:06 85 05/24/23 10:06 127/72 05/24/23 10:05 87 L 05/24/23 10:05 84 05/24/23 10:04 100 05/24/23 10:04 82 05/24/23 10:00 18 05/24/23 10:00 18 05/24/23 09:59 100 05/24/23 09:59 77 05/24/23 09:54 100 05/24/23 09:54 84 05/24/23 09:49 100 05/24/23 09:49 92 H 05/24/23 09:49 141/82 H 05/24/23 09:44 100 05/24/23 09:44 99 H 05/24/23 09:40 85 L 05/24/23 09:40 80 05/24/23 09:39 100 05/24/23 09:39 79 05/24/23 09:35 78 05/24/23 09:35 139/75 05/24/23 09:34 100 05/24/23 09:34 81 05/24/23 09:30 20 05/24/23 09:30 20 05/24/23 09:29 100 05/24/23 09:29 80 05/24/23 09:24 100 05/24/23 09:24 82 05/24/23 09:20 79 05/24/23 09:20 113/55 L 05/24/23 09:19 100 05/24/23 09:19 79 05/24/23 09:14 100 05/24/23 09:14 81 05/24/23 09:09 100 05/24/23 09:09 80 05/24/23 09:04 100 05/24/23 09:04 95 H 05/24/23 09:00 20 05/24/23 09:00 20 05/24/23 08:59 100 05/24/23 08:59 77 05/24/23 08:54 100 05/24/23 08:54 80 05/24/23 08:49 100 05/24/23 08:49 77 05/24/23 08:47 87 05/24/23 08:47 118/55 L 05/24/23 08:44 100 05/24/23 08:44 82 05/24/23 08:42 88 05/24/23 08:42 121/56 L 05/24/23 08:39 100 05/24/23 08:39 79 05/24/23 08:36 80 05/24/23 08:36 105/66 05/24/23 08:34 100 05/24/23 08:34 86 05/24/23 08:31 76 05/24/23 08:31 111/56 L 05/24/23 08:29 100 05/24/23 08:29 78 05/24/23 08:28 81 05/24/23 08:28 116/58 L 05/24/23 08:24 100 05/24/23 08:24 77 05/24/23 08:23 18 05/24/23 08:23 18 05/24/23 08:21 80 05/24/23 08:21 108/54 L 05/24/23 08:19 100 05/24/23 08:19 84 05/24/23 08:18 22 05/24/23 08:18 22 05/24/23 08:16 75 05/24/23 08:16 111/56 L 05/24/23 08:14 100 05/24/23 08:14 84 05/24/23 08:14 110/58 L 05/24/23 08:13 20 05/24/23 08:13 20 05/24/23 08:12 82 05/24/23 08:12 110/56 L 05/24/23 08:10 82 05/24/23 08:10 111/55 L 05/24/23 08:09 100 05/24/23 08:09 80 05/24/23 08:08 87 05/24/23 08:08 103/64 05/24/23 08:06 89 05/24/23 08:06 134/74 05/24/23 08:04 100 05/24/23 08:04 84 05/24/23 08:04 76 05/24/23 08:04 133/79 05/24/23 08:02 78 05/24/23 08:02 136/76 05/24/23 07:59 100 05/24/23 07:59 95 H 05/24/23 07:59 90 05/24/23 07:59 87 05/24/23 07:56 90 05/24/23 07:56 143/88 H 05/24/23 07:54 100 05/24/23 07:54 101 H 05/24/23 07:49 100 05/24/23 07:49 89 05/24/23 07:44 99 05/24/23 07:44 85 05/24/23 07:39 100 05/24/23 07:39 83 05/24/23 07:37 20 05/24/23 07:37 20 05/24/23 07:34 100 05/24/23 07:34 85 05/24/23 07:32 20 05/24/23 07:32 20 05/24/23 07:30 20 05/24/23 07:30 20 05/24/23 07:29 100 05/24/23 07:29 84 05/24/23 07:27 22 05/24/23 07:27 22 05/24/23 07:24 100 05/24/23 07:24 83 05/24/23 07:15 22 05/24/23 07:15 22 05/24/23 06:57 36.6 C 20 05/24/23 06:50 18 05/24/23 06:50 36.6 C 84 18 126/63 Coding Level of Care Code None Diagnoses Normal labor O80; Z37.9
--- NOTE | 2023-05-24 13:59 | Delivery Summary ---
Vaginal Delivery Summary Date of Service May 24, 2023 Vaginal Delivery Summary Pre-operative Diagnosis: at 41 weeks labor srom Post-operative Diagnosis: same Procedure: epidural right labial lac and repair EBL: 400cc Anesthesia: epidural Procedure: The patient presented to labor and delivery in active labor. Underwent epidural, then srom for clear fluid. She progressed to c/c/+3. The patient pushed for one contractions to deliver a viable male in saida position. The rest of the was then delivered without difficulty. The baby was vigorous. The nose and mouth were bulb suctioned and the was placed in the maternal abdomen for drying and attention. Cord was clamped and cut at one minute of life. Cord blood and segment obtained. Placenta delivered spontaneous, intact with a three vessel cord. Cervix/sulci/ rectum/perineum were intact. A right labial laceration was repaired in the normal standard fashion. Hemostasis obtained with dilute pitocin and fundal massage. Apgars were 8/9. Mother and baby doing well at the end of the delivery. [facility] [place] Delivery Type Details:
--- NOTE | 2023-05-24 14:06 | Labor Progress Brief Note ---
Date of Service May 24, 2023 Subjective comfortable Assessment & Plan (1) Normal labor: (2) Obesity affecting : Trimester: third trimester Obesity type affecting : unspecified obesity Qualified Code(s): O99.213 - Obesity complicating , third trimester Plan continue current management. Admission and Anticipated Discharge Date Admission Date: May 24, 2023 Physical Exam Physical Exam: cx--5/75/-2 arom--clear toco--q2-4min, pit at 11 efm--130s wtih mod variabiltiy, accels to 150s, no decels Results & Data Vital Signs (Past 12 Hours) Vital Signs Temp Pulse Resp BP Pulse Ox 05/24/23 13:58 86 L 05/24/23 13:58 93 H 05/24/23 13:56 100 05/24/23 13:56 91 H 05/24/23 13:51 100 05/24/23 13:51 108 H 05/24/23 13:51 107 H 05/24/23 13:51 106/58 L 05/24/23 13:46 100 05/24/23 13:46 102 H 05/24/23 13:41 100 05/24/23 13:41 103 H 05/24/23 13:36 100 05/24/23 13:36 112 H 05/24/23 13:35 96 H 05/24/23 13:35 143/78 H 05/24/23 13:31 100 05/24/23 13:31 103 H 05/24/23 13:30 18 05/24/23 13:30 18 05/24/23 13:26 100 05/24/23 13:26 96 H 05/24/23 13:21 100 05/24/23 13:21 99 H 05/24/23 13:19 85 05/24/23 13:19 96/52 L 05/24/23 13:16 100 05/24/23 13:16 82 05/24/23 13:11 100 05/24/23 13:11 82 05/24/23 13:06 100 05/24/23 13:06 83 05/24/23 13:05 81 05/24/23 13:05 106/59 L 05/24/23 13:01 100 05/24/23 13:01 94 H 05/24/23 13:00 18 05/24/23 13:00 18 05/24/23 12:56 100 05/24/23 12:56 90 05/24/23 12:51 98 05/24/23 12:51 91 H 05/24/23 12:49 102 H 05/24/23 12:49 107/58 L 05/24/23 12:46 100 05/24/23 12:46 80 05/24/23 12:42 83 L 05/24/23 12:42 96 H 05/24/23 12:41 100 05/24/23 12:41 93 H 05/24/23 12:36 100 05/24/23 12:36 84 05/24/23 12:35 77 05/24/23 12:35 105/56 L 05/24/23 12:31 100 05/24/23 12:31 93 H 05/24/23 12:30 20 05/24/23 12:30 20 05/24/23 12:28 86 L 05/24/23 12:28 88 05/24/23 12:26 100 05/24/23 12:26 90 05/24/23 12:21 100 05/24/23 12:21 98 H 05/24/23 12:20 85 05/24/23 12:20 96/52 L 05/24/23 12:16 100 05/24/23 12:16 99 H 05/24/23 12:14 85 L 05/24/23 12:14 92 H 05/24/23 12:13 88 05/24/23 12:13 126/73 05/24/23 12:11 100 05/24/23 12:11 81 05/24/23 12:06 100 05/24/23 12:06 89 05/24/23 12:04 82 05/24/23 12:04 119/69 05/24/23 12:01 100 05/24/23 12:01 86 05/24/23 12:00 18 05/24/23 12:00 18 05/24/23 11:56 100 05/24/23 11:56 81 05/24/23 11:51 100 05/24/23 11:51 78 05/24/23 11:49 81 05/24/23 11:49 121/71 05/24/23 11:46 100 05/24/23 11:46 77 05/24/23 11:41 100 05/24/23 11:41 84 05/24/23 11:36 100 05/24/23 11:36 88 05/24/23 11:34 95 H 05/24/23 11:34 121/68 05/24/23 11:31 85 L 05/24/23 11:31 101 H 05/24/23 11:30 18 05/24/23 11:30 18 05/24/23 11:26 100 05/24/23 11:26 80 05/24/23 11:21 100 05/24/23 11:21 85 05/24/23 11:20 87 L 05/24/23 11:20 84 05/24/23 11:19 82 05/24/23 11:19 113/63 05/24/23 11:16 100 05/24/23 11:16 79 05/24/23 11:11 98 05/24/23 11:11 95 H 05/24/23 11:09 83 L 05/24/23 11:09 85 05/24/23 11:06 97 05/24/23 11:06 84 05/24/23 11:04 89 05/24/23 11:04 121/68 05/24/23 11:01 98 05/24/23 11:01 84 05/24/23 11:00 18 05/24/23 11:00 18 05/24/23 11:00 80 L 05/24/23 11:00 85 05/24/23 10:56 100 05/24/23 10:56 88 05/24/23 10:50 87 05/24/23 10:50 122/74 05/24/23 10:49 100 05/24/23 10:49 86 05/24/23 10:44 100 05/24/23 10:44 77 05/24/23 10:40 80 L 05/24/23 10:40 82 05/24/23 10:39 20 05/24/23 10:39 36.6 C 20 05/24/23 10:39 90 05/24/23 10:39 81 05/24/23 10:38 87 05/24/23 10:38 118/58 L 05/24/23 10:36 108 H 05/24/23 10:36 144/54 H 05/24/23 10:34 96 05/24/23 10:34 119 H 05/24/23 10:32 88 L 05/24/23 10:32 96 H 05/24/23 10:30 20 05/24/23 10:30 20 05/24/23 10:29 100 05/24/23 10:29 90 05/24/23 10:24 100 05/24/23 10:24 88 05/24/23 10:21 83 05/24/23 10:21 130/77 05/24/23 10:19 99 05/24/23 10:19 83 05/24/23 10:14 100 05/24/23 10:14 79 05/24/23 10:09 100 05/24/23 10:09 80 05/24/23 10:06 85 05/24/23 10:06 127/72 05/24/23 10:05 87 L 05/24/23 10:05 84 05/24/23 10:04 100 05/24/23 10:04 82 05/24/23 10:00 18 05/24/23 10:00 18 05/24/23 09:59 100 05/24/23 09:59 77 05/24/23 09:54 100 05/24/23 09:54 84 05/24/23 09:49 100 05/24/23 09:49 92 H 05/24/23 09:49 141/82 H 05/24/23 09:44 100 05/24/23 09:44 99 H 05/24/23 09:40 85 L 05/24/23 09:40 80 05/24/23 09:39 100 05/24/23 09:39 79 05/24/23 09:35 78 05/24/23 09:35 139/75 05/24/23 09:34 100 05/24/23 09:34 81 05/24/23 09:30 20 05/24/23 09:30 20 05/24/23 09:29 100 05/24/23 09:29 80 05/24/23 09:24 100 05/24/23 09:24 82 05/24/23 09:20 79 05/24/23 09:20 113/55 L 05/24/23 09:19 100 05/24/23 09:19 79 05/24/23 09:14 100 05/24/23 09:14 81 05/24/23 09:09 100 05/24/23 09:09 80 05/24/23 09:04 100 05/24/23 09:04 95 H 05/24/23 09:00 20 05/24/23 09:00 20 05/24/23 08:59 100 05/24/23 08:59 77 05/24/23 08:54 100 05/24/23 08:54 80 05/24/23 08:49 100 05/24/23 08:49 77 05/24/23 08:47 87 05/24/23 08:47 118/55 L 05/24/23 08:44 100 05/24/23 08:44 82 05/24/23 08:42 88 05/24/23 08:42 121/56 L 05/24/23 08:39 100 05/24/23 08:39 79 05/24/23 08:36 80 05/24/23 08:36 105/66 05/24/23 08:34 100 05/24/23 08:34 86 05/24/23 08:31 76 05/24/23 08:31 111/56 L 05/24/23 08:29 100 05/24/23 08:29 78 05/24/23 08:28 81 05/24/23 08:28 116/58 L 05/24/23 08:24 100 05/24/23 08:24 77 05/24/23 08:23 18 05/24/23 08:23 18 05/24/23 08:21 80 05/24/23 08:21 108/54 L 05/24/23 08:19 100 05/24/23 08:19 84 05/24/23 08:18 22 05/24/23 08:18 22 05/24/23 08:16 75 05/24/23 08:16 111/56 L 05/24/23 08:14 100 05/24/23 08:14 84 05/24/23 08:14 110/58 L 05/24/23 08:13 20 05/24/23 08:13 20 05/24/23 08:12 82 05/24/23 08:12 110/56 L 05/24/23 08:10 82 05/24/23 08:10 111/55 L 05/24/23 08:09 100 05/24/23 08:09 80 05/24/23 08:08 87 05/24/23 08:08 103/64 05/24/23 08:06 89 05/24/23 08:06 134/74 05/24/23 08:04 100 05/24/23 08:04 84 05/24/23 08:04 76 05/24/23 08:04 133/79 05/24/23 08:02 78 05/24/23 08:02 136/76 05/24/23 07:59 100 05/24/23 07:59 95 H 05/24/23 07:59 90 05/24/23 07:59 87 05/24/23 07:56 90 05/24/23 07:56 143/88 H 05/24/23 07:54 100 05/24/23 07:54 101 H 05/24/23 07:49 100 05/24/23 07:49 89 05/24/23 07:44 99 05/24/23 07:44 85 05/24/23 07:39 100 05/24/23 07:39 83 05/24/23 07:37 20 05/24/23 07:37 20 05/24/23 07:34 100 05/24/23 07:34 85 05/24/23 07:32 20 05/24/23 07:32 20 05/24/23 07:30 20 05/24/23 07:30 20 05/24/23 07:29 100 05/24/23 07:29 84 05/24/23 07:27 22 05/24/23 07:27 22 05/24/23 07:24 100 05/24/23 07:24 83 05/24/23 07:15 22 05/24/23 07:15 22 05/24/23 06:57 36.6 C 20 05/24/23 06:50 18 05/24/23 06:50 36.6 C 84 18 126/63 Coding Level of Care Code None Diagnoses Normal labor O80; Z37.9 Obesity affecting in third trimester, unspecified obesity type O99.213 Trimester: third trimester Obesity type affecting : unspecified obesity
[2023-05-24] MEDS ORDERED: BENZOCAINE 20% SPRY 85 APPLN/85 GM CAN EXT PRN (14:21)
[2023-05-24] MEDS ORDERED: ACETAMINOPHEN 325 MG TAB PO PRN (14:21)
[2023-05-24] MEDS ORDERED: DIPHTHERIA/TETANUS/PERTUSSIS Vaccine (Tdap, Age 7+yrs) 0.5mL SYR/VL IM ONE (14:21)
[2023-05-24] MEDS ORDERED: HYDROCORTISONE ACETATE 25 MG SUPP PR PRN (14:21)
[2023-05-24] MEDS ORDERED: oxyCODONE/ACETAMINOPHEN 5mg/325mg TAB PO PRN (14:21)
[2023-05-24] MEDS ORDERED: bisacodyL 10 MG SUPP PR PRN (14:21)
[2023-05-24] MEDS ORDERED: SODIUM CHLORIDE 0.9% 250 ML IV PRN (14:34)
--- NOTE | 2023-05-24 16:39 | Anesthesia Procedure Note ---
Date of Service May 24, 2023 Anesthesia Post Epidural Note Vital Signs Vital Signs: Temp Pulse Resp BP Pulse Ox 36.6 C 107 H 16 123/60 86 L 05/24/23 10:39 05/24/23 15:34 05/24/23 15:36 05/24/23 15:34 05/24/23 13:58 Notes Mental Status: alert / awake / arousable Nausea / Vomiting: adequately controlled Pain: adequately controlled Airway Patency, RR, SpO2: stable & adequate BP & HR: stable & adequate Hydration State: stable & adequate Neuraxial Anesthesia: was administered and sensory block is resolving Anesthetic Complications: no major complications apparent and Pt Satisfied with anesthetic care Epidural: Removed without complications and With tip intact
[2023-05-24] MEDS: IBUPROFEN 600 MG TAB PO PRN ×2 (17:01→23:21)
[2023-05-24] MEDS: DOCUSATE SODIUM 100 MG CAP PO SCH (19:41)
[2023-05-24 23:49] VITALS: O2SAT 100
--- NOTE | 2023-05-25 05:02 | Obstetrical Progress Note ---
Date of Service <Steve Rios - Last Filed: 05/25/23 06:22> May 25, 2023 Assessment & Plan <Steve Rios - Last Filed: 05/25/23 06:22> (1) care following vaginal delivery: Plan 23 year old , PPD#1: Eating well, voiding well, ambulating well Vitals reviewed, significant for soft overnight BPs, most recent 98/68 Pain well controlled with Motrin Routine care - OOB, ambulation, diet progression as tolerated Will have 6 week follow up with Dr. Peacock <Kayla Peacock MD, FACOG - Last Filed: 05/25/23 07:14> (1) care following vaginal delivery: Subjective <Steve Rios - Last Filed: 05/25/23 06:22> Ambulation: ambulating normally Voiding: no voiding problems Passing Gas:: Yes Diet Tolerance:: regular diet Lochia:: Moderate Feeding Type:: breast feeding Pain well controlled with Motrin Review of Systems -Denies fever or chills -Denies dyspnea, chest pain, or palpitations -Denies dysuria -Denies headache or changes in vision Physical Exam <Steve Rios - Last Filed: 05/25/23 06:22> General: Alert and oriented. No acute distress Cardiac: Regular rate and rhythm, no murmurs appreciated Respiratory: Lungs clear to auscultation bilaterally, No increased work of breathing Abdominal: Soft, non-tender, non-distended. Bowel sounds present. Uterus: Uterine fundus firm, palpable below umbilicus Extremities: No lower extremity edema, calves non-tender bilaterally Results & Data <Steve Rios - Last Filed: 05/25/23 06:22> Vital Signs (Past 12 Hours) Vital Signs Temp Pulse Resp BP Pulse Ox O2 Del Method 05/25/23 03:10 36.7 C 74 16 98/68 L 100 Room Air 05/24/23 23:20 36.7 C 79 16 98/62 L 100 Room Air 05/24/23 19:40 36.5 C 85 16 94/61 L 99 Room Air Supervising Physician <Kayla Peacock MD, FACOG - Last Filed: 05/25/23 07:14> Co-Signing Physician Notes Resident Physician Supervision Note: I interviewed and examined the patient. Discussed with Dr. Rios and agree with findings and plan as documented in the note. Any exceptions or clarifications are listed here: Doing well, routine pp care. Tolerating hgb drop. Desires d/c today. Instructions given. Documented By: Kayla Peacock MD, FACOG Resident Activity Tracking <Steve Rios, DO - Last Filed: 05/25/23 06:22> Resident Involvement: Resident Care Provided Care Provided: OB Delivery
[2023-05-25 06:33] LABS: Hematocrit (blood only) 27.6 % (37.0-47.0); Hemoglobin 8.5 g/dl (12.0-16.0); Mean Corpuscular Hemoglobin 25.2 pg (25.0-34.0); Mean Corpuscular Hgb Conc 30.8 g/dL (32.0-36.0); Mean Corpuscular Volume 81.9 fL (80.0-100.0); Mean Platelet Volume 10.7 fL (9.4-12.4); Platelet Count 199 K/uL (130-400); RDW Coefficient of Variation 15.9 % (11.5-14.5); RDW Standard Deviation 46.9 fL (36.4-46.3); Red Blood Count 3.37 M/uL (4.20-5.40); White Blood Count 20.54 K/ul (4.8-10.8)
[2023-05-25] MEDS ORDERED: PRENATAL VITAMIN 1 TAB PO SCH (08:00)
[2023-05-25] MEDS: DOCUSATE SODIUM 100 MG CAP PO SCH (08:16)
[2023-05-25] MEDS: IBUPROFEN 600 MG TAB PO PRN (08:18)
[2023-05-25 12:07] VITALS: BP 109/69; PULSE 67; RESP 18; TEMP 97.5
[2023-05-25] MEDS ORDERED: bisacodyL 5 MG TABEC PO SCH (20:00)
== END 2023-05-25 17:00 | disposition home or self-care (01) | DRG 807 ==
LOC: 4S1 06:33 → 4E2 16:21

== ENCOUNTER 2024-10-16 11:11 | Inpatient (IN) ==
[2024-10-16] MEDS ORDERED: LIDOCAINE 1% LOCAL 20 ML VIAL INFIL PRN (11:56)
[2024-10-16] MEDS ORDERED: OXYTOCIN 30 UNITS/NSS 30 UNITS/500 ML BAG IV PRN ×2 (11:56→17:54)
[2024-10-16] MEDS ORDERED: ACETAMINOPHEN 500 MG TAB PO PRN (11:56)
[2024-10-16] MEDS: LACTATED RINGER'S 1,000 ML IV PRN (12:14)
[2024-10-16] MEDS: PENICILLIN GK 6 MU in DEXTROSE 5% 250 ML IV STA (12:54)
[2024-10-16] MEDS: OXYTOCIN 30 UNITS/NSS 30 UNITS/500 ML BAG IV PRN (12:57)
[2024-10-16 13:07] LABS: Hematocrit (blood only) 30.8 % (37.0-47.0); Hemoglobin 9.9 g/dl (12.0-16.0); Mean Corpuscular Hemoglobin 25.1 pg (25.0-34.0); Mean Corpuscular Hgb Conc 32.1 g/dL (32.0-36.0); Mean Platelet Volume 10.7 fL (9.4-12.4); Platelet Count 205 K/uL (130-400); RDW Coefficient of Variation 15.4 % (11.5-14.5); RDW Standard Deviation 43.5 fL (36.4-46.3); Red Blood Count 3.95 M/uL (4.20-5.40); White Blood Count 11.76 K/ul (4.8-10.8)
[2024-10-16] MEDS: CALCIUM CARBONATE 500 MG CHEWABLE TAB PO PRN (13:47)
--- NOTE | 2024-10-16 14:31 | History & Physical Report ---
Date of Service October 16, 2024 Assessment & Plan (1) Encounter for supervision of normal in multigravida: Plan: Gricel is a 24-year-old G3, P2 currently at 39 weeks 6 days gestational age presents with rupture of membranes not in labor 1. Fetus: Category 1 tracing. 2. Labor: Spontaneous rupture of membranes not in labor. Will start oxytocin per regular protocol 3. GBS positive: Penicillin per protocol 4. Vitals within normal limits (2) GBS (group B Streptococcus carrier), +RV culture, currently : (3) SROM (spontaneous rupture of membranes): Admission and Anticipated Discharge Date Admission Date: October 16, 2024 History of Present Illness Primary Care Provider: Smiley Bledsoe PA-C Gricel is a 24-year-old G3, P2 currently at 39 weeks 6 days gestational age presents for evaluation of leakage of fluid. Reports heavy discharge first noticed around 930 this morning. Reports irregular moderately painful contractions. Denies bleeding and reporting normal movement. plans: Family History of Congenital Heart Defect Echo ~22-24 weeks 08/21/24 [place] [facility] [place]-recommend echo in nursery prior to discharge GBS (+) treat in labor OB Labs: Blood Type O Positive 06/26/24 Antibody Screen NEGATIVE 06/26/24 Hgb 10.1 g/dl (12.0-16.0) L 08/13/24 Hct 31.9 % (37.0-47.0) L 08/13/24 MCV 86.3 fL (80.0-100.0) 06/26/24 Plt Count 202 K/uL (130-400) 06/26/24 Rubella IgG Antibody Immune (Immune) 06/26/24 RPR Nonreactive (Nonreactive) 11/12/22 Treponema pallidum Ab Negative (Negative) 08/13/24 Hep Bs Antigen Negative (Negative) 06/26/24 Hep Bs Antigen NON-REACTIVE (NON-REACTIVE) 11/12/22 Hepatitis C Antibody Negative (Negative) 06/26/24 Hepatitis C Ab (EIA) NON-REACTIVE (NON-REACTIVE) 11/12/22 HIV 1&2 Ab/P24 Ag 4thGn Negative (Negative) 06/26/24 HIV (1&2) Ag & Ab Conf NON-REACTIVE (NON-REACTIVE) 11/12/22 Glucose 1 Hr 50 gm 117 mg/dl (70-130) 08/13/24 Maternal Serum AFP 48.1 ng/mL 08/21/20 OB Optional Labs: Chlamydia trachomatis RNA Not Detected (NotDetected) 06/26/24 Neisseria gonorrhoeae RNA Not Detected (NotDetected) 06/26/24 Thyroid Stimulating Hormone (TSH) 0.724 uIu/ml (0.300-4.500) 08/21/20 Alpha Fetoprotein Triple Screen SEE NOTE 08/21/20 Labs Reviewed: low risk cfdna- sln decliens afp - sln afp neg--akh gbs neg--akh Allergies Allergy/AdvReac Type Severity Reaction Status Date / Time No Known Allergies Allergy Verified 10/11/24 09:50 Home Medications Medication Instructions Recorded Confirmed Type vits no.124-ferrous fum 1 tab PO DAILY 10/16/24 10/16/24 History 27 mg iron-folic acid 800 mcg tablet ( Vitamin) Patient History Medical History Seasonal allergies Asthma Group B streptococcal carriage complicating Varicella vaccination Surgical History S/P ankle fusion (~02/10/11) S/P tonsillectomy S/P wisdom tooth extraction Family History Grandfather (Maternal) Diabetes Hypertension Grandmother (Maternal) No problems noted. Grandmother (Paternal) Diabetes Mother Hypertension Asthma Uncle Liver cancer Colorectal cancer Aunt Breast cancer Denies family history of Ovarian cancer Social History (Updated 03/28/24 @ 13:08 by Amber Friedman) Smoking Status: Former smoker Tobacco Type: E-cigarettes / Vaping Cigarettes Per Day: 01/2020; Second Hand Exposure: Yes (S.O. smokes); Do You Dip or Chew Tobacco: No; Hx Alcohol Use: No Hx Substance Use: No Preferred Language: Serbian Communication Ability: Effective Licensed Mental Health Professional Required: No Beliefs That Will Affect Care: None marital status: Single marital status details: Catia Gatesmindy Chance (28) [phone] Current Living Situation: Family Current Living Situation Comment: Lives with fob, children, 1 dog, 1 cat-fob to change litter current occupational status: unemployed Other Information That Helps Us Care for You: No Feels Safe at Home: Yes Safety Concerns: Feels Safe At This Time Assistive Devices: None Physical Exam Genitourinary: OB Exam Abdomen: + vertex Manual OB Exam: + cervical dilation 3 cm, + cervical effacement 70%, + station -2 and + amniotic fluid (+Pooling) clear and ferning present Results & Data Vital Signs (Past 12 Hours) Vital Signs Temp Pulse Resp BP 10/16/24 14:01 18 10/16/24 14:01 36.7 C 18 10/16/24 14:01 81 10/16/24 14:01 110/72 10/16/24 11:25 36.5 C 18 10/16/24 11:22 95 H 123/75 Coding Level of Care Code None Diagnoses Encounter for supervision of normal in multigravida Z34.80 GBS (group B Streptococcus carrier), +RV culture, currently O99.820 SROM (spontaneous rupture of membranes)
[2024-10-16] MEDS ORDERED: diphenhydrAMINE 50 MG/ML VIAL IV PRN (14:43)
[2024-10-16] MEDS ORDERED: fentANYL 2 MCG/ML BUPIVacaine 0.125%-NSS 100ML BAG EPI PRN (14:43)
[2024-10-16] MEDS ORDERED: ePHEDrine sulfate 50 MG/ML AMP IV PRN (14:43)
[2024-10-16] MEDS ORDERED: ROPIVACAINE 0.5% PF 5 MG/ML 20 ML VIAL EPI PRN (14:43)
[2024-10-16] MEDS ORDERED: LIDOCAINE 2% MPF LOCAL 5 ML VIAL EPI PRN (14:43)
[2024-10-16] MEDS ORDERED: NALBUPHINE HCL INJ 10 MG/ML AMP IV PRN (14:43)
[2024-10-16] MEDS ORDERED: fentaNYL citrate PF 100 MCG/2 ML VIAL EPI PRN (14:43)
[2024-10-16] MEDS ORDERED: PROMETHAZINE 6.25 MG/50.25 ML BAG IV PRN (14:43)
[2024-10-16] MEDS ORDERED: NALOXONE HCL 1 MG in SODIUM CHLORIDE 0.9% 1,000 ML IV PRN (14:43)
[2024-10-16] MEDS ORDERED: BUPIVACAINE 0.25% PF 30 ML VIAL EPI PRN (14:43)
[2024-10-16] MEDS ORDERED: NALOXONE HCL 0.4 MG/1 ML VIAL/CARP IV PRN (14:43)
[2024-10-16] MEDS ORDERED: SODIUM CHLORIDE 0.9% PF INJ 10 ML VIAL EPI PRN (14:43)
--- NOTE | 2024-10-16 14:43 | Anesthesiology Consultation ---
Date of Service October 16, 2024 Assessment & Plan Chart Review Chart Review: Patient NOT seen in Pre Admission Testing and Acceptable Risk for Labor Epidural Consults Requested none ASA ASA2 Proposed Anesthesia Anesthesia Type: Labor Epidural Risk / Benefits Reviewed With: PT / POA / Parent / Guardian, Accepts Plan and Informed Consent Obtained History Height/Weight Height: 5 ft 2 in Weight: 87.997 kg Allergies Allergy/AdvReac Type Severity Reaction Status Date / Time No Known Allergies Allergy Verified 10/11/24 09:50 Medications Home Medications Medication Instructions Recorded Confirmed Last Taken vits no.124-ferrous fum 1 tab PO DAILY 10/16/24 10/16/24 Unknown 27 mg iron-folic acid 800 mcg tablet ( Vitamin) Active Medications Generic Name Dose Route Start Last Admin Trade Name Freq PRN Reason Stop Dose Admin Calcium Carbonate 1,000 mg 10/16/24 11:56 10/16/24 13:47 Calcium Carbonate 500 Mg Chewable Tab PO 11/15/24 11:55 1,000 mg Q8H PRN Administration Indigestion Lactated Ringer's 1,000 mls @ 125 mls/hr 10/16/24 11:56 10/16/24 14:14 Lr IV 10/17/24 11:55 125 mls/hr .Q8H PRN Infusion L&D Protocol Protocol Oxytocin 30 units in 500 mls @ 4 mls/hr 10/16/24 11:56 10/16/24 13:30 Pitocin 30 Units/Nss IV 10/18/24 11:55 0.24 units/hr .Q24H PRN 4 mls/hr Labor Induction/Augmentation Titration Protocol 0.24 UNITS/HR Past Medical History Medical History Seasonal allergies Asthma Group B streptococcal carriage complicating Varicella vaccination Exercise / Class Metabolic Activity II 4-5 Yardwork/Stairs/Walk up hill Past Family History Family History Grandfather (Maternal) Diabetes Hypertension Grandmother (Maternal) No problems noted. Grandmother (Paternal) Diabetes Mother Hypertension Asthma Uncle Liver cancer Colorectal cancer Aunt Breast cancer Denies family history of Ovarian cancer Past Surgical History Surgical History S/P ankle fusion (~02/10/11) S/P tonsillectomy S/P wisdom tooth extraction Past Anesthesia History No Hx of Anesthesia Complications and No Family Hx of Anesthesia Complications History of PONV No Hx of PONV and No Hx of Motion Sickness Social History Smoking Status: Former smoker tobacco type: cigarettes Smoking cigarettes per day: 01/2020 Do You Dip or Chew Tobacco: No Hx Alcohol Use: No Hx Substance Use: No substance use type: does not use Physical Exam Vital Signs Last Vital Signs Temp 36.7 C 10/16/24 14:01 Pulse 81 10/16/24 14:01 Resp 18 10/16/24 14:01 BP 110/72 10/16/24 14:01 ENMT Mouth: no dentition abnormality Thyromental Distance: > or= 3.5 Finger Breadths Mallampati Class: II Neck normal visual inspection Respiratory normal respiratory effort Auscultation: lungs clear to auscultation bilaterally Cardiovascular Rate/Rhythm: regular rate and regular rhythm Psychiatric Orientation: alert Testing Laboratory Results 10/16/24 12:35 Blood Type O Positive 10/16/24 12:35 Antibody Screen NEGATIVE 10/16/24 12:35
[2024-10-16] MEDS: fentANYL 2 MCG/ML BUPIVacaine 0.125%-NSS 100ML BAG ONE (15:02)
[2024-10-16] MEDS: LIDOCAINE 2%/EPINEPHRINE 1:200,000 20 ML PF ONE (15:04)
[2024-10-16] MEDS: SODIUM CHLORIDE 0.9% PF INJ 10 ML VIAL ONE (15:04)
[2024-10-16] MEDS: BUPIVACAINE 0.25% PF 30 ML VIAL ONE (15:05)
[2024-10-16] MEDS: fentaNYL citrate PF 100 MCG/2 ML VIAL ONE (15:13)
[2024-10-16] MEDS: fentaNYL citrate PF 100 MCG/2 ML VIAL EPI STA (15:16)
[2024-10-16] MEDS: LIDOCAINE 2%/EPINEPHRINE 1:200,000 20 ML PF EPI STA (15:16)
[2024-10-16] MEDS: SODIUM CHLORIDE 0.9% PF INJ 10 ML VIAL EPI STA (15:16)
[2024-10-16] MEDS: BUPIVACAINE 0.25% PF 30 ML VIAL EPI STA (15:16)
[2024-10-16] MEDS: ONDANSETRON INJ 2 MG/ML 2 ML VIAL IV PRN (15:20)
[2024-10-16] MEDS: PENICILLIN GK 3 MU in DEXTROSE 5% 100 ML IV PRN (16:58)
[2024-10-16] MEDS: ePHEDrine sulfate 50 MG/ML AMP ONE (17:06)
[2024-10-16] MEDS ORDERED: BENZOCAINE 20% SPRY 85 APPLN/85 GM CAN EXT PRN (17:54)
[2024-10-16] MEDS ORDERED: ACETAMINOPHEN 325 MG TAB PO PRN (17:54)
[2024-10-16] MEDS ORDERED: HYDROCORTISONE ACETATE 25 MG SUPP PR PRN (17:54)
--- NOTE | 2024-10-16 17:58 | Delivery Summary ---
Vaginal Delivery Summary Date of Service October 16, 2024 Vaginal Delivery Summary Patient progressed to 10 cm dilated 100% effaced +2 station and pushed over intact perineum with an epidural anesthesia and delivered a viable with weight and Apgars pending. Head of the delivered without difficulty quickly followed by shoulders and body. was noted to be vigorous soon after delivery and a 1 minute delayed cord clamping was initiated. Cord was then double clamped and cut remained on maternal abdomen. Cord blood obtained and attention turned to deliver the placenta which delivered intact with three-vessel cord with gentle cord traction. Inspection of perineum vagina and cervix there is no to be no lacerations. Sponge and instrument counts correct with completion of the case. Both mother and stable in the immediate postdelivery timeframe. No complications noted and blood loss per [facility] Vaginal Delivery Charge Delivery Type Details: [facility]
--- NOTE | 2024-10-16 19:48 | Anesthesia Procedure Note ---
Date of Service October 16, 2024 Anesthesia Post Epidural Note Vital Signs Vital Signs: Temp Pulse Resp BP Pulse Ox 36.9 C 75 20 109/56 L 93 10/16/24 16:01 10/16/24 19:35 10/16/24 17:01 10/16/24 19:35 10/16/24 17:38 Pain Intensity Lower Abdomen: Pain Intensity: 5 Notes Mental Status: alert / awake / arousable Nausea / Vomiting: adequately controlled Pain: adequately controlled Airway Patency, RR, SpO2: stable & adequate BP & HR: stable & adequate Hydration State: stable & adequate Neuraxial Anesthesia: was administered and sensory block is resolving Anesthetic Complications: no major complications apparent and Pt Satisfied with anesthetic care Epidural: Removed without complications and With tip intact
[2024-10-17] MEDS: IBUPROFEN 600 MG TAB PO PRN (01:43)
[2024-10-17] MEDS: DOCUSATE SODIUM 100 MG CAP PO SCH (03:18)
[2024-10-17] MEDS: DIPHTHER/TETAN/PERTUS Vaccine (Tdap, Adol/Adult) 0.5mL IM ONE (03:19)
[2024-10-17] MEDS: LORATADINE 10 MG TAB PO PRN (03:25)
[2024-10-17 06:21] LABS: Hematocrit (blood only) 26.9 % (37.0-47.0); Hemoglobin 8.5 g/dl (12.0-16.0)
--- NOTE | 2024-10-17 07:35 | Obstetrical Progress Note ---
Date of Service October 17, 2024 Assessment & Plan (1) Encounter for care and examination after delivery: Day 1 status post vaginal delivery. Patient doing well and stable for discharge at 24 hours if preferred. Subjective Ambulation: ambulating normally Voiding: no voiding problems Passing Gas:: Yes Diet Tolerance:: regular diet Lochia:: Moderate Physical Exam Constitutional WD/WN, vitals as above Respiratory normal respiratory effort; no respiratory distress and no labored breathing Cardiovascular Extremities: no calf tenderness Gastrointestinal (Abdomen) Inspection/Auscultation: abdomen normal to inspection; abdomen not distended Percussion/Palpation: abdomen soft; abdomen nontender, no guarding and abdomen not rigid Genitourinary OB Exam Abdomen: + fundal height Fundus: + firm and + relation to umbilicus (Below); not tender or not boggy Results & Data Vital Signs (Past 12 Hours) Vital Signs Temp Pulse Pulse Resp BP BP O2 Del Method 10/17/24 03:10 36.4 C L 72 18 111/72 Room Air 10/17/24 01:31 36.7 C 66 18 111/66 Room Air 10/16/24 20:00 36.4 C L 18 10/16/24 19:53 36.4 C L 77 20 114/59 L Room Air 10/16/24 19:50 77 10/16/24 19:50 116/59 L 10/16/24 19:35 75 10/16/24 19:35 109/56 L
[2024-10-17] MEDS: FERROUS SULFATE 325 MG TAB PO SCH (09:08)
[2024-10-17] MEDS: PRENATAL VITAMIN 1 TAB PO SCH (09:08)
[2024-10-17 16:59] VITALS: BP 117/70; PULSE 72; RESP 20; TEMP 98.1; O2SAT 98
[2024-10-17] MEDS ORDERED: bisacodyL 5 MG TABEC PO SCH (20:00)
[2024-10-18] MEDS ORDERED: bisacodyL 10 MG SUPP PR PRN (09:00)
== END 2024-10-17 19:35 | disposition home or self-care (01) | DRG 807 ==
LOC: OPB 11:11 → 4S1 11:13 → 4E2 20:48
DX: Z37.0 Single live birth; Z3A.39 39 weeks gestation of pregnancy; O42.02 Full-term premature rupture of membranes, onset of labor within 24 hours of rupture; O99.824 Streptococcus B carrier state complicating childbirth